=== PATIENT | female | born 1995 | race Caucasian/White ===

== ENCOUNTER 2017-11-06 09:56 | Emergency (ER) | payer MEDICAID, OTHER ==
[~2017-11-06] VITALS: Ht 5703.2 cm; Wt 68.2 kg
[~2017-11-06 09:56] MED LIST: ALBU6.7H3 IH; ALBU8.5H8 IH; DICY10CA88 PO; IBUP-812 PO; IBUP200C74 PO; NITR100C6 PO; ONDA8TAB6 PO; PHEN-873 PO; ZOF4T PO; [UNRECOGNIZED DRUG - CODE] PO; [UNRECOGNIZED DRUG - OTHER]
[2017-11-06] MEDS ORDERED: diphenhydrAMINE 50 mg/ml inj IV ONE (10:45)
[2017-11-06] MEDS ORDERED: normal saline 1000ML IV soln IVB ONE ×2 (10:45)
[2017-11-06] MEDS ORDERED: metoclopramide 5 mg/ml inj IV ONE (10:45)
[2017-11-06] MEDS ORDERED: metoclopramide 5 mg/ml inj ONE (10:52)
[2017-11-06] MEDS ORDERED: diphenhydrAMINE 50 mg/ml inj ONE (10:52)
[2017-11-06] MEDS ORDERED: ONDA4TAB12 PO (11:35)
[2017-11-06 12:49] VITALS: BP 114/85
== END 2017-11-06 12:51 | disposition home or self-care (01) ==
LOC: ER 09:57
DX: F10.129 Alcohol abuse with intoxication, unspecified (principal); R11.2 Nausea with vomiting, unspecified; J45.909 Unspecified asthma, uncomplicated; F17.210 Nicotine dependence, cigarettes, uncomplicated; F12.10 Cannabis abuse, uncomplicated; Z98.890 Other specified postprocedural states; Z79.899 Other long term (current) drug therapy
CPT/HCPCS: 96374; 96375; 99284; J1200; J2765; J7030

== ENCOUNTER 2018-11-04 11:47 | Emergency (ER) | payer OTHER ==
[~2018-11-04] VITALS: Ht 172.7 cm; Wt 64.5 kg
[~2018-11-04 11:47] MED LIST changes: +IBUP-2417 PO; -IBUP200C74 PO; +ONDA4TAB12 PO; +PHEN-786 PO; -PHEN-873 PO
[2018-11-04 15:27] VITALS: BP 104/66
== END 2018-11-04 15:18 | disposition home or self-care (01) ==
LOC: ER 11:48
DX: R55 Syncope and collapse (principal); R42 Dizziness and giddiness; J45.909 Unspecified asthma, uncomplicated; F12.90 Cannabis use, unspecified, uncomplicated; Z79.899 Other long term (current) drug therapy
CPT/HCPCS: 82948; 93005; 99284

== ENCOUNTER 2019-01-19 16:39 | Emergency (ER) | payer MEDICAID ==
[~2019-01-19] VITALS: Ht 172.7 cm; Wt 60.0 kg
[2019-01-19 17:12] LABS: BASOPHILS # (AUTO) 0.1 X10'3 (0-0.2); BASOPHILS % (AUTO) 1.2 % (0-1); EOSINOPHILS # (AUTO) 0.1 X10'3 (0-0.9); EOSINOPHILS % (AUTO) 0.6 % (0-6); HEMATOCRIT 43.3 % (35.0-45.0); HEMOGLOBIN 14.3 g/dl (12.0-16.0); LYMPHOCYTES % (AUTO) 32.8 % (21-51); MEAN CORPUSCULAR HEMOGLOBIN 28.2 PG (27.0-31.0); MEAN CORPUSCULAR HGB CONC 33.1 g/dL (33.0-36.5); MEAN CORPUSCULAR VOLUME 85.1 FL (78-98); MEAN PLATELET VOLUME 9.9 FL (7.4-10.4); MONOCYTES # (AUTO) 0.3 X10'3 (0-0.9); MONOCYTES % (AUTO) 3.8 % (2-12); NEUTROPHILS # (AUTO) 5.6 X10'3 (1.8-7.7); NEUTROPHILS % (AUTO) 61.6 % (42-75); PLATELET COUNT 149 X10'3 (140-440); RED BLOOD COUNT 5.09 X10'6 (4.20-5.60); RED CELL DISTRIBUTION WIDTH 13.1 % (11.5-14.5); WHITE BLOOD COUNT 9.1 X10'3 (4.5-11.0)
[2019-01-19 17:22] LABS: ALANINE AMINOTRANSFERASE 21 U/L (12-78); ALBUMIN 3.8 G/DL (3.4-5.0); ALBUMIN/GLOBULIN RATIO 1.5 (1.1-1.5); ALKALINE PHOSPHATASE 60 IU/L (46-116); ANION GAP 8 (8-16); ASPARTATE AMINO TRANSFERASE 13 U/L (10-37); BILIRUBIN,TOTAL 0.5 MG/DL (0.1-1.0); BLOOD UREA NITROGEN 8 MG/DL (7-18); BUN/CREATININE RATIO 9.9 (6.6-38.0); CALCIUM 8.7 MG/DL (8.5-10.1); CHLORIDE 108 MMOL/L (99-107); CREATININE 0.81 MG/DL (0.40-0.90); GLUCOSE 97 MG/DL (70-104); LIPASE 76 U/L (73-393); POTASSIUM 3.8 MMOL/L (3.5-5.1); SODIUM 143 MMOL/L (135-145); TOTAL CARBON DIOXIDE 27.5 MMOL/L (24-32); TOTAL PROTEIN 6.4 G/DL (6.4-8.2); eGFR 87 ML/MIN
[2019-01-19] MEDS ORDERED: azithromycin 250mg tablet PO ONE (17:30)
[2019-01-19] MEDS ORDERED: CefTRIAXone 1000mg IM Kit (w/lidocaine diluent) IM ONE (17:30)
[2019-01-19 17:50] LABS: CLARITY,URINE CLEAR (Clear); COLOR,URINE STRAW (Yellow); GLUCOSE, URINE NEGATIVE (Neg); KETONES,URINE NEGATIVE (Neg); LEUKOCYTE ESTERASE ,URINE TRACE (Neg); NITRITES, URINE NEGATIVE (Neg); OCCULT BLOOD,URINE MODERATE (Neg); PH,URINE 6.5 (4.8-8.0); PROTEIN,URINE NEGATIVE (Neg); UROBILINOGEN,URINE 0.2 E.U/dL (0.2-1.0)
[2019-01-19 17:51] LABS: URINE HCG NEGATIVE (NEG)
[2019-01-19 17:53] LABS: UA COLLECTION TYPE VOIDED
[2019-01-19 18:03] LABS: BACTERIA,URINE FEW /HPF (Neg); MUCUS STRANDS NONE SEEN /LPF (Neg); RBC,URINE NONE SEEN /HPF (0-2); SQUAMOUS EPITHELIAL CELL,UR FEW /LPF (FEW); WBC,URINE 0-4 /HPF (0-4)
[2019-01-19 18:12] VITALS: BP 103/73
== END 2019-01-19 18:14 | disposition home or self-care (01) ==
LOC: ER 16:41
DX: N93.8 Other specified abnormal uterine and vaginal bleeding (principal); J45.909 Unspecified asthma, uncomplicated; F31.9 Bipolar disorder, unspecified; F12.90 Cannabis use, unspecified, uncomplicated; Z98.890 Other specified postprocedural states; Z79.899 Other long term (current) drug therapy
CPT/HCPCS: 36415; 80053; 81001; 81025; 83690; 85025; 87088; 87491; 87591; 96372; 99283; J0696

== ENCOUNTER 2019-02-01 09:18 | Emergency (ER) | payer MEDICAID ==
[~2019-02-01] VITALS: Ht 172.7 cm; Wt 61.4 kg
[2019-02-01 09:19] VITALS: BP 111/76
[2019-02-01] MEDS ORDERED: FLUC150T66 PO (09:35)
== END 2019-02-01 09:48 | disposition home or self-care (01) ==
LOC: ER 09:18
DX: N89.8 Other specified noninflammatory disorders of vagina (principal); J45.909 Unspecified asthma, uncomplicated; F31.9 Bipolar disorder, unspecified; F12.90 Cannabis use, unspecified, uncomplicated; Z79.899 Other long term (current) drug therapy; Z98.890 Other specified postprocedural states
CPT/HCPCS: 99283

== ENCOUNTER 2019-03-26 09:05 | Emergency (ER) | payer MEDICAID ==
[~2019-03-26] VITALS: Ht 172.7 cm; Wt 56.8 kg
[2019-03-26 10:11] VITALS: BP 110/46
== END 2019-03-26 10:12 | disposition home or self-care (01) ==
LOC: ER 09:05
DX: S61.052A Open bite of left thumb without damage to nail, initial encounter (principal); J45.909 Unspecified asthma, uncomplicated; F12.90 Cannabis use, unspecified, uncomplicated; Z98.890 Other specified postprocedural states; Z79.899 Other long term (current) drug therapy; W61.01XA Bitten by parrot, initial encounter; Y93.89 Activity, other specified; Y92.89 Other specified places as the place of occurrence of the external cause; Y99.9 Unspecified external cause status
CPT/HCPCS: 99281

== ENCOUNTER 2021-07-28 14:44 | Emergency (ER) | payer MEDICAID ==
[~2021-07-28] VITALS: Ht 172.7 cm; Wt 82.1 kg
[~2021-07-28 14:44] MED LIST changes: +ALBU8.5H17 IH; -ALBU8.5H8 IH
[2021-07-28 14:55] VITALS: BP 127/90
[2021-07-28] MEDS ORDERED: AMOX-580 PO (15:08)
[2021-07-28] MEDS ORDERED: IBUP-1986 PO (15:09)
== END 2021-07-28 15:45 | disposition home or self-care (01) ==
LOC: ER 14:44
DX: K00.6 Disturbances in tooth eruption (principal); J45.909 Unspecified asthma, uncomplicated; F31.9 Bipolar disorder, unspecified; F12.90 Cannabis use, unspecified, uncomplicated; Z86.2 Personal history of diseases of the blood and blood-forming organs and certain disorders involving the immune mechanism; Z98.890 Other specified postprocedural states; Z72.89 Other problems related to lifestyle; Z79.899 Other long term (current) drug therapy
CPT/HCPCS: 99283